=== PATIENT | female | born 1990 | race Caucasian/White ===

== ENCOUNTER 2017-07-25 18:03 | Emergency (ER) | payer OTHER ==
[2017-07-25] MEDS: OXYCODONE/APAP 5MG/325MG(BULK FOR ED) 1 TABLET PO (20:17)
== END 2017-07-25 20:20 | disposition home or self-care (01) ==
LOC: M ED 18:03
DX: Z76.0 Encounter for issue of repeat prescription (principal); G89.29 Other chronic pain; C85.90 Non-Hodgkin lymphoma, unspecified, unspecified site; E03.9 Hypothyroidism, unspecified; F41.9 Anxiety disorder, unspecified; Z79.890 Hormone replacement therapy; Z79.899 Other long term (current) drug therapy; Z88.8 Allergy status to other drugs, medicaments and biological substances; Z91.02 Food additives allergy status; Z98.890 Other specified postprocedural states
CPT/HCPCS: 99283

== ENCOUNTER → 2017-12-30 | Outpatient (CLI) | payer OTHER ==
[~2017-12-30] MED LIST: METHACHOLINE KIT (J7674) INH
== END ==
LOC: M CARPUL 09:19
DX: R06.00 Dyspnea, unspecified (principal)
CPT/HCPCS: J7674

== ENCOUNTER 2019-09-10 13:07 | Inpatient (IN) | payer OTHER ==
[~2019-09-10] VITALS: Ht 154.9 cm; Wt 84.0 kg
[~2019-09-10 13:07] MED LIST changes: +LEVO125T4 PO; -METHACHOLINE KIT (J7674) INH; +NUVAMIS2 VA; +OXYC30TA72 PO; +PHEN1SUP6 PO; +ZOLO50TA PO
[2019-09-10] MEDS ORDERED: OXYC1TAB15 PO (13:20)
[2019-09-10] MEDS ORDERED: MORP-69 PO (13:20)
[2019-09-10] MEDS ORDERED: ONDANSETRON 4MG/2ML VIAL (J2405) IV ONE (14:30)
[2019-09-10 14:34] LABS: INFLUENZA A AMPLIFICATION NEGATIVE (NEGATIVE); INFLUENZA B AMPLIFICATION NEGATIVE (NEGATIVE)
--- NOTE | 2019-09-10 14:40 | REP ---
CHEST, TWO VIEWS: No comparison. Two views of the chest are performed. Right lung is clear with no infiltrate. Density at the right cardiophrenic angle probably represents a fat pad. Left hilum appears retracted superiorly with apparent pleural and parenchymal fibrosis in the left apex. Heart is not enlarged. Visualized osseous structures appear intact. IMPRESSION: No evidence of acute infiltrate. 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 Electronically Signed by Ponce Draper MD 09/10/2019 06:53 P
[2019-09-10 15:16] LABS: HEMATOCRIT 39.1 % (36.0-47.0); HEMOGLOBIN 12.5 g/dl (12.0-15.5); MEAN CORPUSCULAR HEMOGLOBIN 29.7 pg (27.0-33.0); MEAN CORPUSCULAR VOLUME 92.9 fl (80.0-96.0); RED BLOOD COUNT 4.21 10^6/uL (4.00-5.40); WHITE BLOOD COUNT 13.2 10^3/uL (4.0-10.0)
[2019-09-10 15:51] LABS: ANISOCYTOSIS 1+; HYPOCHROMASIA 1+; LYMPHOCYTES 3 % (16-44); MONOCYTES 3 % (0-5); NEUTROPHILS 93 % (28-66); PLATELET ESTIMATE INVALID (NORMAL)
[2019-09-10 15:52] LABS: TEAR DROP CELLS 1+
[2019-09-10 15:53] LABS: SPHEROCYTES 1+
[2019-09-10 15:54] LABS: ERYTHROCYTE SEDIMENTATION RATE 92 mm/hr (0-20)
[2019-09-10 15:56] LABS: BLOOD UREA NITROGEN 6 MG/DL (7-18); CALCIUM LEVEL 8.2 MG/DL (8.5-10.1); CARBON DIOXIDE LEVEL 30 MEQ/L (21-32); CHLORIDE LEVEL 94 MEQ/L (98-107); CK-MB VALUE MASS < 1.0 NG/ML (<3.6); CPK CREATINE PHOSPHOKINASE 14 U/L (26-192); CREATININE FOR GFR 0.65 MG/DL (0.55-1.30); GLOMERULAR FILTRATION RATE > 60.0 (>60); GLUCOSE, FASTING 118 MG/DL (70-100); MB/CK RELATIVE INDEX 7.14 (< OR =4); POTASSIUM SERUM 3.1 MEQ/L (3.5-5.1); SODIUM LEVEL 134 MEQ/L (136-145); TROPONIN I < 0.02 NG/ML (< 0.10)
[2019-09-10] MEDS ORDERED: MORPHINE 4 MG/ML 1ML VIAL/SYRINGE (J2270) IV ONE (16:00)
[2019-09-10] MEDS ORDERED: ACETAMINOPHEN 500 MG TAB PO ONE (16:00)
[2019-09-10] MEDS ORDERED: PROM25TA12 PO (16:53)
[2019-09-10] MEDS ORDERED: cefTRIAXone SOD 1 GM in D5W MINI-BAG PLUS 50 ML IV ONE (17:30)
--- NOTE | 2019-09-10 17:56 | ECGEPIP ---
[facility] - ED Test Date: 2019-09-10 Pat Name: AMARJIT PALMER Department: Room: - Gender: Female Negative Retoucher: faiza : 1990 Requested By: RAKESH AU Order Number: [id number] Reading MD: Diana Manzano Measurements Intervals [place] Rate: 127 P: 56 IN: 154 QRS: 8 QRSD: 82 T: 43 QT: 335 QTc: 488 Interpretive Statements SINUS TACHYCARDIA LOW QRS VOLTAGE IN PRECORDIAL LEADS NONSPECIFIC ST & T-WAVE ABNORMALITY ABNORMAL RHYTHM ECG PRWP NO PRIOR Electronically Signed on 09-10-2019 17:56:13 EST by Diana Manzano
[2019-09-10] MEDS ORDERED: PILL CUTTER 1 EACH XX PRN (18:45)
[2019-09-10 19:12] VITALS: BP 133/89
[2019-09-10] MEDS: KCL 40MEQ in NS 1000ML 1,000 ML IV SCH (19:49)
[2019-09-10] MEDS ORDERED: ACETAMINOPHEN 500 MG TAB PO SCH (21:00)
--- NOTE | 2019-09-10 21:45 | HPEPDOC ---
General Date of Admission 09/10/19 Date of Service: Sep 10, 2019 Chief Complaint The patient is a 29-year-old female admitted with a reason for visit of FEVER. Source: Patient, RN/, Old records History of Present Illness 29 year old female who was diagnosed with strep throat adn scarlet fever about 3 weeks ago and was given a 10 course of antibiotics. After 4 to 5 days of antibiotics her rash had resolved her fever was gone and her pharyngitis was better so she stopped taking the antibiotics. She started back on fevers 6 days ago along with nausea and vomiting and her rash came back about 4 days ago rapidly spreading from the thighs to the legs then abdomen and back . It was red and confluennt with areas of desquamation. She was taking tylenol at home however the fever and rash was not improving so she came to the ED. In the ED she was found to have elvated WBC, elevated lactate, very high CRP and ESR and very high ASO titer . She was also febrile to 102 and tachycardic to 140s. She was admitted for streptococcal pharyngitis, sepsis and scarlitiniform rash. Home Medications Scheduled Levothyroxine Sodium (Levothyroxine Sodium) 125 Mcg Tab, 125 MCG PO DAILY, (Reported) Morphine Sulfate (Morphine Sulfate ER) 15 Mg Tablet.er, 15 MG PO QID, (Reported) 0500, 1100, 1700, 2300 Sertraline Hcl (Zoloft) 50 Mg Tab, 75 MG PO DAILY, (Reported) Scheduled PRN Promethazine HCl (Promethazine HCl) 25 Mg Tablet, 25 MG PO Q6H PRN for NAUSEA, (Reported) Allergies Coded Allergies: duloxetine (Verified Allergy, Unknown, "auto immune response", 09/10/19) gabapentin (Verified Adverse Reaction, Unknown, "crazy in the head", 09/10/19) Past Medical History Medical History NHL lymphoma in 2007 in remission s/p chemo and radiation h/o restrictive lung disease h/o pericardial windows x 3 h/o bilateral pleural effusions in 2007 s/p thoracotomy with lymphatic channel ligation Chronic chest pain after thoracotomy Opiod dependence s/p tonsillectomy and adenoidectomy in 2007 Social History * Smoker: Denies Alcohol: Denies Drugs: denies A-FIB/CHADSVASC A-FIB History Current/History of A-Fib/PAF?: No Review of Systems Constitutional: Reports: Chills, Fever; Denies: Night Sweats Eyes: Denies: Pain, Vision change ENT: Reports: Sore Throat Skin: Reports: Rash Pulmonary: Denies: Dyspnea, Cough Cardiovascular: Reports: Chest Pain Gastrointestinal: Reports: Nausea, Vomiting Genitourinary: Denies: Dysuria, Frequency, Incontinence, Retention Hematologic: Denies: Bruising, Bleeding Excessively Musculoskeletal: Denies: Neck Pain, Back Pain, Joint Pain, Muscle Pain, Spasms Neurological: Denies: Weakness, Numbness, Change in speech, Confusion Psych: Reports: Mood Normal; Denies: Depression, Memory Issues Physical Examination General Exam: Positive: Alert, Cooperative, No Acute Distress Eye Exam: Positive: PERRLA, Conjunctiva & lids normal, EOMI; Negative: Sclera icteric ENT Exam: Positive: Mucous membr. moist/pink, Tongue Midline, Pharyngeal Edema Neck Exam: Positive: Supple; Negative: JVD, thyromegaly Chest Exam: Positive: Clear to auscultation, Normal air movement Heart Exam: Positive: Tachycardic, Regular Rhythm, Normal S1, Normal S2 Telemetry: Positive: No significant arrhythmia Abdomen Exam: Positive: Normal bowel sounds, Soft; Negative: Tenderness, Hepatospenomegaly Extremity Exam: Positive: Normal pulses; Negative: Clubbing, Cyanosis, Edema Skin Exam: Positive: Rash (diffuse confluent erythematous rash with areasof desquamation in the legs, thighs, abodomen and back. ) Neuro Exam: Positive: Normal Speech, Strength at 5/5 X4 ext, Normal Tone, Cranial Nerves 3-12 NL, Reflexes 2+ Psych Exam: Positive: Mental status NL, Mood NL, Memory Intact, Oriented x 3 Vital Signs Vital Signs Date Time Temp Pulse Resp B/P (MAP) Pulse Ox O2 Delivery O2 Flow Rate FiO2 09/10/19 17:04 16 Room Air 09/10/19 15:43 102.4 139 127/79 (95) 97 Laboratory Data Labs 24H Laboratory Tests 2 09/10/19 13:58: Influenza Type A (RT-PCR) NEGATIVE, Influenza Type B (RT-PCR) NEGATIVE 09/10/19 14:58: Immature Granulocyte % (Auto) , Neutrophils (%) (Auto) , Nucleated Red Blood Cells % (auto) 0.0, Neutrophils 93H, Band Neutrophils 1, Lymphocytes (Manual) 3L, Monocytes (Manual) 3, Hypochromasia 1+, Anisocytosis 1+, Macrocytosis 1+, Spherocytes 1+, Tear Drop Cells 1+, Platelet Estimate INVALID, Erythrocyte S edimentation Rate 92H, Anion Gap 10, Glomerular Filtration Rate > 60.0, Lactic Acid Level 2.1*H, Calcium Level 8.2L, Total Creatine Kinase 14L, Creatine Kinase MB < 1.0, Creatine Kinase MB Relative Index 7.14H, Troponin I < 0.02, C-Reactive Protein, Quantitative 29.50H, Anti-Streptolysin O Antibody 287.0H CBC/BMP Laboratory Tests 09/10/19 14:58 Microbiology Microbiology 09/10/19 Blood Culture, Received Pending 09/10/19 Blood Culture, Received Pending Assessment/Plan 29 year old female who was diagnosed with strep throat adn scarlet fever about 3 weeks ago and was given a 10 course of antibiotics. After 4 to 5 days of antibiotics her rash had resolved her fever was gone and her pharyngitis was better so she stopped taking the antibiotics. She started back on fevers 6 days ago along with nausea and vomiting and her rash came back about 4 days ago rapidly spreading from the thighs to the legs then abdomen and back . It was red and confluennt with areas of desquamation. She was taking tylenol at home h owever the fever and rash was not improving so she came to the ED. In the ED she was found to have elvated WBC, elevated lactate, very high CRP and ESR and very high ASO titer . She was also febrile to 102 and tachycardic to 140s. She was admitted for streptococcal pharyngitis, sepsis and scarlitiniform rash. Strepcoccocal pharyngitis she had strep group A throat infection 3 weeks ago did not finish antibiotics. will recheck strep throat and throat culture will give ceftriaxone. tylenol and ibuprofen for fever Rash this looks like scarlet fever symptomatic treatment. Sepsis due to above blood cultures and throat cultures ordered. will give ivf and ceftriaxone Hypokalemia replaced. Tachycardia due to high ASO titre, high crp and high ESR will get an echo and monitor under telemetry. History of NHL now in remission Chronic chest pain from thoracotomy continue morphine Restrictive lung disease chronic CXR with chronic changes Plan / VTE VTE Prophylaxis Ordered?: Yes HANNAH CARLOS MD Sep 10, 2019 17:21
[2019-09-10] MEDS: MORPHINE 15 MG SA TAB PO SCH (22:01)
[2019-09-10] MEDS: IBUPROFEN 800 MG TAB PO PRN (23:29)
[2019-09-11] MEDS: diphenhydrAMINE 25 MG CAP PO SCH ×2 (00:23→22:32)
[2019-09-11] MEDS: LEVOTHYROXINE 125MCG TABLET (0.125MG) PO SCH (05:09)
[2019-09-11] MEDS: KCL 40MEQ in NS 1000ML 1,000 ML IV SCH ×2 (05:12→15:16)
[2019-09-11] MEDS: MORPHINE 15 MG SA TAB PO SCH ×4 (05:12→22:32)
[2019-09-11] MEDS ORDERED: cefTRIAXone SOD 1 GM in D5W MINI-BAG PLUS 50 ML IV SCH (06:00)
[2019-09-11] MEDS ORDERED: cefTRIAXone SOD 1 GM in D5W MINI-BAG PLUS 50 ML IV ONE (07:00)
[2019-09-11 07:50] VITALS: BP 129/75
[2019-09-11] MEDS: SERTRALINE HCL 50 MG TAB PO SCH (09:08)
[2019-09-11] MEDS: ENOXAPARIN 40 MG/0.4 ML SYRINGE (J1650) SC SCH (09:09)
[2019-09-11] MEDS: ACETAMINOPHEN 500 MG TAB PO SCH ×2 (09:12→21:32)
[2019-09-11] MEDS: PERCOCET 5MG/325MG TAB PO PRN ×3 (09:12→21:33)
--- NOTE | 2019-09-11 10:45 | IPNPDOC ---
Subjective Date Seen The patient was seen on 09/11/19. Subjective Chief Complaint/HPI feeling better , no more fever all night . rash getting better . Right knee pain is better, No difficulty in breathing. Objective Physical Examination General Exam: Positive: Alert, Cooperative, No Acute Distress Eye Exam: Positive: PERRLA, Conjunctiva & lids normal, EOMI; Negative: Sclera icteric ENT Exam: Positive: Mucous membr. moist/pink, Tongue Midline, Pharyngeal Edema Neck Exam: Positive: Supple; Negative: JVD, thyromegaly Chest Exam: Positive: Clear to auscultation, Normal air movement Heart Exam: Positive: Tachycardic, Regular Rhythm, Normal S1, Normal S2 Telemetry: Positive: No significant arrhythmia Abdomen Exam: Positive: Normal bowel sounds, Soft; Negative: Tenderness, Hepatospenomegaly Extremity Exam: Positive: Normal pulses; Negative: Clubbing, Cyanosis, Edema Skin Exam: Positive: Rash (diffuse confluent erythematous rash with areasof desquamation in the legs, thighs, abodomen and back. ) Neuro Exam: Positive: Normal Speech, Strength at 5/5 X4 ext, Normal Tone, Cranial Nerves 3-12 NL, Reflexes 2+ Psych Exam: Positive: Mental status NL, Mood NL, Memory Intact, Oriented x 3 Assessment /Plan Assessment 29 year old female who was diagnosed with strep throat and scarlet fever about 3 weeks ago and was given a 10 course of antibiotics. After 4 to 5 days of antibiotics her rash had resolved her fever was gone and her pharyngitis was better so she stopped taking the antibiotics. She started back on fevers 6 days ago along with nausea and vomiting and her rash came back about 4 days ago rapidly spreading from the thighs to the legs then abdomen and back . It was red and confluent with areas of desquamation. She was taking tylenol at home however the fever and rash was not improving so she came to the ED. In the ED she was found to have elevated WBC, elevated lactate, very high CRP and ESR and very high ASO titer . She was also febrile to 102 and tachycardic to 140s. She also started having right knee pain. She was admitted for streptococcal pharyngitis, sepsis and scarlitiniform rash. Possible Acute rheumatic fever Has onoarthritis of right knee, elevated ASO, elevated CRP, and ESR, fever. No [place] prolongation Will get an echo for evaluation for Carditis Tylenol and ibuprofen for fever Streptococcal pharyngitis she had strep group A throat infection 3 weeks ago did not finish antibiotics. will recheck strep throat and throat culture will give ceftriaxone. Rash this looks like scarlet fever rash rather than erythema marginatum symptomatic treatment. Sepsis due to above blood cultures and throat cultures ordered. ceftriaxone Hypokalemia replaced. Tachycardia due to high ASO titre, high crp and high ESR will get an echo and monitor under telemetry. History of NHL now in remission Chronic chest pain from thoracotomy continue morphine Restrictive lung disease chronic CXR with chronic changes Plan/VTE VTE Prophylaxis Ordered?: Yes VS, I&O, 24H, Fishbone Vital Signs/I&O Vital Signs Date Time Temp Pulse Resp B/P (MAP) Pulse Ox O2 Delivery O2 Flow Rate FiO2 09/11/19 09:12 17 09/11/19 07:50 97.0 89 129/75 (93) 97 Room Air I&O- Last 24 Hours up to 6 AM 09/11/19 06:00 Intake Total 2168 ml Output Total 800 ml Balance 1368 ml Laboratory Data 24H LABS Laboratory Tests 2 09/10/19 13:58: Influenza Type A (RT-PCR) NEGATIVE, Influenza Type B (RT-PCR) NEGATIVE 09/10/19 14:58: Immature Granulocyte % (Auto) , Neutrophils (%) (Auto) , Nucleated Red Blood Cells % (auto) 0.0, Neutrophils 93H, Band Neutrophils 1, Lymphocytes (Manual) 3L, Monocytes (Manual) 3, Hypochromasia 1+, Anisocytosis 1+, Macrocytosis 1+, Spherocytes 1+, Tear Drop Cells 1+, Platelet Estimate INVALID, Erythrocyte Sedimentation Rate 92H, Anion Gap 10, Glomerular Filtration Rate > 60.0, Lactic Acid Level 2.1*H, Calcium Level 8.2L, Total Creatine Kinase 14L, Creatine Kinase MB < 1.0, Creatine Kinase MB Relative Index 7.14H, Troponin I < 0.02, C-Reactive Protein, Quantitative 29.50H, Anti-Streptolysin O Antibody 287.0H 09/10/19 19:43: Lactic Acid Followup at 4 Hours 1.3 CBC/BMP Laboratory Tests 09/10/19 14:58 Microbiology Microbiology 09/10/19 Eye/Ear/Nose/Throat Culture, Received Pending 09/10/19 Group A Streptococcus Screen (JAVI) - Final, Complete 09/10/19 Blood Culture, Received Pending 09/10/19 Blood Culture, Received Pending HANNAH CARLOS MD Sep 11, 2019 10:45
[2019-09-11 11:34] VITALS: BP 114/77
[2019-09-11] MEDS ORDERED: BICILLIN L-A 2,400,000 UNIT/4 ML SYRINGE (J0561-24)PENICILLIN G BENZATINE IM ONE ×2 (12:00→12:15)
[2019-09-11] MEDS: ONDANSETRON 4MG/2ML VIAL (J2405) IV PRN (13:26)
[2019-09-11 15:40] VITALS: BP 127/82
--- NOTE | 2019-09-11 20:13 | IPNPDOC ---
Text Note Date of Service The patient was seen on 09/11/19. NOTE TIME OF SERVICE 802PM Per d/w the patient's RN she is still nauseous despite zofran. I offered the patient reglan and explained that there is a risk of developing drug induced parkinsons "moving slow". The patient verbalized understanding and despite the risk would like to try the medication for her nausea. VS,Fishbone, I+O VS, Fishbone, I+O Vital Signs Date Time Temp Pulse Resp B/P (MAP) Pulse Ox O2 Delivery O2 Flow Rate FiO2 09/11/19 17:07 16 09/11/19 15:40 97.0 97 127/82 (97) 96 Room Air I&O- Last 24 Hours up to 6 AM 09/11/19 05:59 Intake Total 2118 ml Output Total 800 ml Balance 1318 ml FELIPE DYER MD Sep 11, 2019 20:12
[2019-09-11] MEDS ORDERED: METOCLOPRAMIDE INJ 10MG/2ML VIAL (J2765) IV ONE (20:15)
[2019-09-11 22:00] VITALS: BP 109/70
[2019-09-11] MEDS: IBUPROFEN 800 MG TAB PO PRN (22:40)
[2019-09-11 23:25] LABS: APPEARANCE, URINE HAZY (CLEAR); BACTERIA, URINE AUTO NEGATIVE (NEGATIVE); BILIRUBIN, URINE AUTO 1+ (NEGATIVE); BLOOD, URINE BLOOD NEGATIVE (NEGATIVE); COLOR, URINE AMBER (YELLOW); GLUCOSE, URINE (UA) AUTO NEGATIVE (NEGATIVE); KETONE, URINE AUTO NEGATIVE (NEGATIVE); LEUKOCYTE ESTERASE, URINE AUTO NEGATIVE (NEGATIVE); MUCUS, URINE SMALL (NEGATIVE); NITRITE, URINE AUTO NEGATIVE (NEGATIVE); PROTEIN, URINE AUTO 1+ mg/dL (NEGATIVE); RBC, URINE AUTO 3 /HPF (0-3); SPECIFIC GRAVITY URINE AUTO 1.027 (1.002-1.035); SQUAMOUS EPITHELIAL CELL UR AU 6 /HPF (0-6); WBC, URINE AUTO 5 /HPF (0-3)
[2019-09-12] MEDS: KCL 40MEQ in NS 1000ML 1,000 ML IV SCH ×3 (00:14→22:20)
[2019-09-12] MEDS: MORPHINE 15 MG SA TAB PO SCH ×4 (05:30→23:00)
[2019-09-12] MEDS: LEVOTHYROXINE 125MCG TABLET (0.125MG) PO SCH (05:30)
[2019-09-12 06:00] VITALS: BP 97/66
[2019-09-12 06:02] LABS: BASO % 0.2 % (0.0-1.0); EOS # 0.1 10^3/uL (0.0-0.5); EOS % 0.8 % (0.0-3.0); HEMATOCRIT 30.2 % (36.0-47.0); LYMPH # 0.9 10^3/uL (1.5-5.0); LYMPH % 9.5 % (24.0-44.0); MEAN CORPUSCULAR HEMOGLOBIN 29.1 pg (27.0-33.0); MEAN CORPUSCULAR HGB CONC 30.5 g/dl (32.0-36.5); MEAN CORPUSCULAR VOLUME 95.6 fl (80.0-96.0); MONO # 0.6 10^3/uL (0.0-0.8); MONO % 6.2 % (0.0-5.0); NEUTROPHILS # 7.3 10^3/uL (1.5-8.5); NEUTROPHILS % 79.2 % (36.0-66.0); PLATELET COUNT, AUTOMATED 255 10^3/uL (150-450); RED BLOOD COUNT 3.16 10^6/uL (4.00-5.40); WHITE BLOOD COUNT 9.2 10^3/uL (4.0-10.0)
[2019-09-12 06:07] LABS: HEMOGLOBIN 9.2 g/dl (12.0-15.5)
[2019-09-12 06:24] LABS: ERYTHROCYTE SEDIMENTATION RATE 107 mm/hr (0-20)
[2019-09-12] MEDS: cefTRIAXone SOD 2 GM in D5W MINI-BAG PLUS 50 ML IV SCH (06:32)
[2019-09-12 07:30] LABS: BLOOD UREA NITROGEN 4 MG/DL (7-18); CALCIUM LEVEL 7.4 MG/DL (8.5-10.1); CARBON DIOXIDE LEVEL 29 MEQ/L (21-32); CHLORIDE LEVEL 107 MEQ/L (98-107); GLOMERULAR FILTRATION RATE > 60.0 (>60); GLUCOSE, FASTING 79 MG/DL (70-100); MAGNESIUM LEVEL 2.1 MG/DL (1.8-2.4); POTASSIUM SERUM 3.8 MEQ/L (3.5-5.1); SODIUM LEVEL 140 MEQ/L (136-145)
[2019-09-12] MEDS: SERTRALINE HCL 50 MG TAB PO SCH (08:33)
[2019-09-12] MEDS: ENOXAPARIN 40 MG/0.4 ML SYRINGE (J1650) SC SCH (08:34)
[2019-09-12] MEDS: ACETAMINOPHEN 500 MG TAB PO SCH ×2 (08:34→22:19)
[2019-09-12] MEDS: PERCOCET 5MG/325MG TAB PO PRN ×2 (09:21→18:35)
[2019-09-12 14:00] VITALS: BP 104/68
[2019-09-12] MEDS ORDERED: PROHANCE 279.3MG/ML 5ML VIAL (A9576) As Ordered ONE (18:03)
[2019-09-12] MEDS ORDERED: PROHANCE 279.3MG/ML 15ML VIAL (A9576) As Ordered ONE (18:04)
[2019-09-12] MEDS ORDERED: LORazepam 2 MG/ML VIAL (J2060) IV STA ×2 (18:47→20:46)
--- NOTE | 2019-09-12 19:17 | ECHO ---
DATE OF PROCEDURE: 09/12/2019 REFERRING PHYSICIAN: Dr. Amina Reese INDICATION: Shortness of breath. HEIGHT: 155 cm WEIGHT: 83 kg 2D MEASUREMENTS: Ventricular septum: 0.88 cm Posterior wall: 0.65 cm Left ventricle diastole: 5.2 cm Aortic root: 2.1 cm LVOT: 2.0 cm Left atrium: 3.5 cm Inferior vena cava: 1.7 cm DOPPLER MEASUREMENTS: Aortic valve velocity: 106 cm/s LVOT velocity: 76.4 cm/s No aortic regurgitation. Very mild mitral regurgitation. Mitral E velocity: 118 cm/s Mitral A velocity: 77.7 cm/s Mitral deceleration time: 127 ms Mild tricuspid regurgitation. Estimated right ventricle systolic pressure: 32-37 mmHg assuming a right atrial pressure of 5-10 mmHg. Mild pulmonic regurgitation. MITRAL ANNULAR TISSUE DOPPLER: E prime lateral: 13.5 cm/s E prime septal: 8.6 cm/s DESCRIPTION: Rhythm was sinus. Image quality was fair. This was a 2D, M-mode, color flow Doppler and pulse wave Doppler examination and included mitral annular tissue Doppler. CONCLUSIONS: 1. Normal left ventricle internal dimensions and wall thickness. Normal regional left ventricular (LV) wall motion and wall thickening. Normal LV systolic function. Left ventricular ejection fraction (LVEF) 65% by visual estimate. Normal LV diastolic function. 2. Suggestive of mild elevation of estimated right ventricle systolic pressure. Mild tricuspid regurgitation. 3. Tiny pericardial effusion, quite possibly within physiologic limits. 4. Otherwise normal appearing echocardiogram Doppler findings.
--- NOTE | 2019-09-12 20:07 | IPNPDOC ---
Subjective Date Seen The patient was seen on 09/12/19. Subjective Chief Complaint/HPI continues to have knee pain but says it i better than before and she can bend the knee a little, only low grade fever last night , no fever this am. rash less angry on the legs. rash on carissa back and abdomen much better almost gone. Complains of nausea after food which is chronic but now much worse. Objective Physical Examination General Exam: Positive: Alert, Cooperative, No Acute Distress Eye Exam: Positive: PERRLA, Conjunctiva & lids normal, EOMI; Negative: Sclera icteric ENT Exam: Positive: Mucous membr. moist/pink, Tongue Midline, Pharyngeal Edema Neck Exam: Positive: Supple; Negative: JVD, thyromegaly Chest Exam: Positive: Clear to auscultation, Normal air movement Heart Exam: Positive: Tachycardic, Regular Rhythm, Normal S1, Normal S2 Telemetry: Positive: No significant arrhythmia Abdomen Exam: Positive: Normal bowel sounds, Soft; Negative: Tenderness, Hepatospenomegaly Extremity Exam: Positive: Normal pulses, Tenderness (right knee), Swelling (right knee); Negative: Clubbing, Cyanosis, Edema Skin Exam: Positive: Rash (diffuse confluent erythematous rash with areasof desquamation in the legs, thighs, abodomen and back. ) Neuro Exam: Positive: Normal Speech, Strength at 5/5 X4 ext, Normal Tone, Cranial Nerves 3-12 NL, Reflexes 2+ Psych Exam: Positive: Mental status NL, Mood NL, Memory Intact, Oriented x 3 Assessment /Plan Assessment 29 year old female who was diagnosed with strep throat and scarlet fever about 3 weeks ago and was given a 10 course of antibiotics. After 4 to 5 days of antibiotics her rash had resolved her fever was gone and her pharyngitis was better so she stopped taking the antibiotics. She started back on fevers 6 days ago along with nausea and vomiting and her rash came back about 4 days ago rapidly spreading from the thighs to the legs then abdomen and back . It was red and confluent with areas of desquamation. She was taking tylenol at home however the fever and rash was not improving so she came to the ED. In the ED she was found to have elevated WBC, elevated lactate, very high CRP and ESR and very high ASO titer . She was also febrile to 102 and tachycardic to 140s. She also started having right knee pain. She was admitted for streptococcal pharyngitis, sepsis and scarlitiniform rash. Possible Acute rheumatic fever Has monoarthritis of right knee, elevated ASO, elevated CRP, and ESR, fever. No [place] prolongation Will get an echo for evaluation for Carditis Tylenol and ibuprofen for fever given benzathine penicillin on ceftriaxone will consult ID. ordered for MRI of Knee Streptococcal pharyngitis she had strep group A throat infection 3 weeks ago did not finish antibiotics. recheck strep throat and throat culture are negative Rash this looks like scarlet fever rash rather than erythema marginatum symptomatic treatment. Sepsis due to above blood cultures negative till date ceftriaxone Hypokalemia replaced. Tachycardia due to high ASO titre, high crp and high ESR echo normal History of NHL now in remission Chronic chest pain from thoracotomy continue morphine and percocet Restrictive lung disease chronic CXR with chronic changes Plan/VTE VTE Prophylaxis Ordered?: Yes VS, I&O, 24H, Fishbone Vital Signs/I&O Vital Signs Date Time Temp Pulse Resp B/P (MAP) Pulse Ox O2 Delivery O2 Flow Rate FiO2 09/12/19 19:05 18 09/12/19 14:00 97.4 99 104/68 (80) 96 Room Air I&O- Last 24 Hours up to 6 AM 09/12/19 06:00 Intake Total 1890 ml Output Total 1250 ml Balance 640 ml Laboratory Data 24H LABS Laboratory Tests 2 09/11/19 23:02: Urine Color TERESO, Urine Appearance HAZY, Urine pH 5.0, Urine Specific [place] 1.027, Urine Protein 1+H, Urine Glucose (Auto)(UA) NEGATIVE, Urine Ketones (Auto) NEGATIVE, Urine Blood NEGATIVE, Urine Nitrite NEGATIVE, Urine Bilirubin 1+H, Urine Urobilinogen 4.0H, Urine Leukocyte Esterase (Auto) NEGATIVE, Urine WBC (Auto) 5H, Urine RBC (Auto) 3, Urine Hyaline Casts (Auto) 0, Urine Bacteria (Auto) NEGATIVE, Urine Squamous Epithelial Cells 6, Urine Mucus (Auto) SMALL, Urine Sperm (Auto) 09/12/19 05:11: Immature Granulocyte % (Auto) 4.1H, Neutrophils (%) (Auto) 79.2H, Lymphocytes (%) (Auto) 9.5L, Monocytes (%) (Auto) 6.2H, Eosinophils (%) (Auto) 0.8, Basophils (%) (Auto) 0.2, Neutrophils # (Auto) 7.3, Lymphocytes # (Auto) 0.9L, Monocytes # (Auto) 0.6, Eosinophils # (Auto) 0.1, Basophils # (Auto) 0.0, Nucleated Red Blood Cells % (auto) 0.0, Erythrocyte Sedimentation Rate 107H, Anion Gap 4L, Glomerular Filtration Rate > 60.0, Calcium Level 7.4L, Magnesium Level 2.1, C-Reactive Protein, Quantitative 17.20H, Anti-Streptolysin O Antibody 248.0H CBC/BMP Laboratory Tests 09/12/19 05:11 Microbiology Microbiology 09/10/19 Eye/Ear/Nose/Throat Culture - Final, Complete 09/10/19 Group A Streptococcus Screen (JAVI) - Final, Complete 09/10/19 Blood Culture - Preliminary, Resulted No Growth after 48 hours. All Specime... 09/10/19 Blood Culture - Preliminary, Resulted No Growth after 48 hours. All Specime... HANNAH CARLOS MD Sep 12, 2019 20:07
[2019-09-12] MEDS: diphenhydrAMINE 25 MG CAP PO SCH (22:19)
--- NOTE | 2019-09-12 22:30 | REPVR ---
PROCEDURE INFORMATION: Exam: MR Right Lower Extremity Joint Without and With Contrast, Knee Exam date and time: 09/12/2019 9:45 PM Age: 29 years old Clinical indication: Swelling or effusion of joint; Knee; Additional info: Swollen, painful knee + HX scarlet fever and group a strep TECHNIQUE: Imaging protocol: MR of the Right lower extremity joint without and with contrast. Exam focused on the knee. Contrast route: Intravenous Contrast material: PROHANCE; Contrast volume: 16 ml; Contrast route: IV COMPARISON: No relevant prior studies available. FINDINGS: Significantly limited study secondary to motion on multiple sequences. Mild subcutaneous soft tissue edema is present circumferentially. No identifiable focal fluid collection suggestive of abscess. Muscular compartments of the imaged distal thigh and proximal leg demonstrate no edema or abnormal enhancement and no peripherally enhancing fluid collection suggestive of an abscess. Small volume of knee joint fluid is present with normal degree of synovial enhancement. Normal osseous alignment. No periosteal elevation. No cortical disruption or fracture/stress fracture. No concerning osseous lesion. No marrow replacement or enhancement to suggest osteomyelitis. Ligaments are difficult to evaluate adequately because of the motion artifact but grossly, the cruciate, and collateral ligaments are intact and the quadriceps mechanism and menisci show no obvious deformity. Chondral surfaces of the knee are difficult to evaluate. IMPRESSION: Limited study secondary to motion, demonstrating mild subcutaneous soft tissue edema suggesting cellulitis superficially. No deep soft tissue infection or evidence of osteomyelitis. Small knee joint effusion without convincing evidence of synovitis to definitively suggest septic arthropathy. As always, if there is high clinical suspicion for septic arthropathy, direct joint aspiration and fluid analysis is required. Electronically signed by: Dharmesh Nuno On 09/12/2019 22:30:24 PM
[2019-09-13] MEDS: KCL 40MEQ in NS 1000ML 1,000 ML IV SCH ×2 (05:30→16:14)
[2019-09-13] MEDS: LEVOTHYROXINE 125MCG TABLET (0.125MG) PO SCH (05:30)
[2019-09-13] MEDS: MORPHINE 15 MG SA TAB PO SCH ×4 (05:30→23:40)
[2019-09-13 06:00] VITALS: BP 113/86
[2019-09-13 06:44] LABS: HEMATOCRIT 32.9 % (36.0-47.0); MEAN CORPUSCULAR HEMOGLOBIN 29.2 pg (27.0-33.0); MEAN CORPUSCULAR HGB CONC 30.4 g/dl (32.0-36.5); MEAN CORPUSCULAR VOLUME 95.9 fl (80.0-96.0); PLATELET COUNT, AUTOMATED 321 10^3/uL (150-450); RED BLOOD COUNT 3.43 10^6/uL (4.00-5.40)
[2019-09-13] MEDS: cefTRIAXone SOD 2 GM in D5W MINI-BAG PLUS 50 ML IV SCH (06:44)
[2019-09-13 06:58] LABS: EOSINOPHILS 1 % (0-3); LYMPHOCYTES 9 % (16-44); MONOCYTES 4 % (0-5); NEUTROPHILS 86 % (28-66)
[2019-09-13 06:59] LABS: PLATELET ESTIMATE NORMAL (NORMAL)
[2019-09-13 07:12] LABS: BLOOD UREA NITROGEN 4 MG/DL (7-18); CALCIUM LEVEL 8.2 MG/DL (8.5-10.1); CARBON DIOXIDE LEVEL 26 MEQ/L (21-32); CHLORIDE LEVEL 110 MEQ/L (98-107); CREATININE FOR GFR 0.48 MG/DL (0.55-1.30); GLOMERULAR FILTRATION RATE > 60.0 (>60); GLUCOSE, FASTING 95 MG/DL (70-100); POTASSIUM SERUM 4.4 MEQ/L (3.5-5.1); SODIUM LEVEL 139 MEQ/L (136-145)
[2019-09-13] MEDS: ACETAMINOPHEN 500 MG TAB PO SCH ×2 (08:54→20:04)
[2019-09-13] MEDS: SERTRALINE HCL 50 MG TAB PO SCH (08:55)
[2019-09-13] MEDS: ENOXAPARIN 40 MG/0.4 ML SYRINGE (J1650) SC SCH (08:57)
--- NOTE | 2019-09-13 11:21 | IPNPDOC ---
Subjective Date Seen The patient was seen on 09/13/19. Subjective Chief Complaint/HPI He right knee continues to be very sore and still swollen but she says its better as now she can walk and and bear weight more. No diarrhea, no vomiting. No abdominal pain. rash is better. No fever . Objective Physical Examination General Exam: Positive: Alert, Cooperative, No Acute Distress Eye Exam: Positive: PERRLA, Conjunctiva & lids normal, EOMI; Negative: Sclera icteric ENT Exam: Positive: Mucous membr. moist/pink, Tongue Midline, Pharyngeal Edema Neck Exam: Positive: Supple; Negative: JVD, thyromegaly Chest Exam: Positive: Clear to auscultation, Normal air movement Heart Exam: Positive: Tachycardic, Regular Rhythm, Normal S1, Normal S2 Telemetry: Positive: No significant arrhythmia Abdomen Exam: Positive: Normal bowel sounds, Soft; Negative: Tenderness, Hepatospenomegaly Extremity Exam: Positive: Tenderness (right knee), Swelling (of right knee); Negative: Clubbing, Cyanosis, Edema Skin Exam: Positive: Rash (diffuse confluent erythematous rash with areasof desquamation in the legs, thighs, abodomen and back. ) Neuro Exam: Positive: Normal Speech, Strength at 5/5 X4 ext, Normal Tone, Cranial Nerves 3-12 NL, Reflexes 2+ Psych Exam: Positive: Mental status NL, Mood NL, Memory Intact, Oriented x 3 Assessment /Plan Assessment 29 year old female who was diagnosed with strep throat and scarlet fever about 3 weeks ago and was given a 10 course of antibiotics. After 4 to 5 days of antibiotics her rash had resolved her fever was gone and her pharyngitis was better so she stopped taking the antibiotics. She started back on fevers 6 days ago along with nausea and vomiting and her rash came back about 4 days ago rapidly spreading from the thighs to the legs then abdomen and back . It was red and confluent with areas of desquamation. She was taking tylenol at home however the fever and rash was not improving so she came to the ED. In the ED she was found to have elevated WBC, elevated lactate, very high CRP and ESR and very high ASO titer . She was also febrile to 102 and tachycardic to 140s. She also started having right knee pain. She was admitted for streptococcal pharyngitis, sepsis and scarlitiniform rash. Possible Acute rheumatic fever Has monoarthritis of right knee, elevated ASO, elevated CRP, and ESR, fever. No CA prolongation Echo normal Tylenol and ibuprofen for fever given benzathine penicillin on ceftriaxone consulted ID, consulted derm. MRi of knee noted. Streptococcal pharyngitis she had strep group A throat infection 3 weeks ago finished 8 days of amoxici llin 1 gm bid. recheck strep throat and throat culture are negative Rash this looks like scarlet fever rash rather than erythema marginatum symptomatic treatment. Sepsis vs SIRS due to above blood cultures negative till date ceftriaxone Hypokalemia replaced. Tachycardia resolved was due to fever and pain. due to high ASO titre, high crp and high ESR echo normal History of NHL now in remission Chronic chest pain from thoracotomy continue morphine and percocet Restrictive lung disease chronic CXR with chronic changes Plan/VTE VTE Prophylaxis Ordered?: Yes VS, I&O, 24H, Fishbone Vital Signs/I&O Vital Signs Date Time Temp Pulse Resp B/P (MAP) Pulse Ox O2 Delivery O2 Flow Rate FiO2 09/13/19 06:00 97.8 96 14 113/86 (95) 96 Room Air I&O- Last 24 Hours up to 6 AM 09/13/19 05:59 Intake Total 2750 ml Output Total 1200 ml Balance 1550 ml Laboratory Data 24H LABS Laboratory Tests 2 09/13/19 06:29: Immature Granulocyte % (Auto) , Neutrophils (%) (Auto) , Nucleated Red Blood Cells % (auto) 0.0, Neutrophils 86H, Lymphocytes (Manual) 9L, Monocytes (Manual) 4, Eosinophils (Manual) 1, Red Blood Cell Morphology NORMAL, Platelet Estimate NORMAL, Anion Gap 3L, Glomerular Filtration Rate > 60.0, Calcium Level 8.2L CBC/BMP Laboratory Tests 09/13/19 06:29 Microbiology Microbiology 09/10/19 Eye/Ear/Nose/Throat Culture - Final, Complete 09/10/19 Group A Streptococcus Screen (JAVI) - Final, Complete 09/10/19 Blood Culture - Preliminary, Resulted No Growth after 48 hours. All Specime... 09/10/19 Blood Culture - Preliminary, Resulted No Growth after 48 hours. All Specime... HANNAH CARLOS MD Sep 13, 2019 11:21
--- NOTE | 2019-09-13 11:37 | CR ---
DATE OF CONSULTATION: 09/12/2019 HISTORY OF PRESENT ILLNESS: Lorena Sierra is a 29-year-old female with a history of non-Hodgkin lymphoma treated about 11 years ago with chemotherapy and radiation who presents today with 3 weeks of fevers and rash. According to the patient, she reports that at first her 4-year-old daughter was complaining of a sore throat and she took her to the clinic where she tested positive for group A Streptococcal pharyngitis. In addition, the patient herself was tested and also found to have positive group A strep on 08/07/2019. Both the patient and her daughter were given 10 days of amoxicillin which the patient reports she took 8 days of. Prior to this, she noted an itchy rash in her groin. After she took the 8 days of the amoxicillin and her daughter took the 10 days of her amoxicillin, her daughter felt better but the patient started to notice worsening rash on her legs, her back and her hips. She states that the rash was very itchy, her legs were very swollen and she noticed she was getting fevers. She came to the hospital for further workup as the rash was spreading all over her body. In the emergency room, she was found to have elevated white blood cell count, elevated lactase, very high CRP and ESR and a very high ASO titer. She was also febrile to 102 and tachycardic in the 140s. Infectious disease was consulted for concern for worsening rash and suspected case of scarlet fever. PAST MEDICAL/SURGICAL HISTORY: 1. Non-Hodgkin lymphoma in 2008 status post chemoradiation and currently in remission. 2. 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 3. History of pericardial window times three. History of bilateral pleural effusions in 2008 status post thoracotomy with lymphatic channel ligation. 4. Chronic chest pain after thoracotomy. 5. Opioid dependence. 6. Status post tonsillectomy and adenoidectomy. SOCIAL HISTORY: Patient is a never smoker. Does not drink alcohol. Does not do any drugs. Lives at home with her who is in the and her daughter who is 4 years old. ALLERGIES: She has allergies to DULOXETINE and GABAPENTIN. HOME MEDICATIONS: - levothyroxine 125 mcg by mouth daily - morphine sulfate ER 15 mg tablets four times a day - sertraline 50 mg tablets 75 mg by mouth daily - promethazine 25 mg every 6 hours as needed for nausea. REVIEW OF SYSTEMS: She reports fevers and chills at home. HEENT: Eyes: She denies any vision changes or pain. She denies sore throat. Skin: She reports worsening rash on her body. Pulmonary: She denies any shortness of breath or cough or dyspnea. Cardiovascular: She denies any chest pain or palpitations. Gastrointestinal: She denies any nausea, vomiting, or diarrhea or constipation. Genitourinary: She denies any dysuria, frequency, incontinence or retention. Hematologic: She denies any new bruising or bleeding excessively. Musculoskeletal: She reports chronic low back and chest pain. Neurologic: She denies any weakness, numbness or loss of sensation. No changes in speech or confusion. Psych: She reports her moods are normal but she has depression and memory issues. PHYSICAL EXAMINATION: VITALS: At this time, temperature 97.4, with a maximum temperature (T-max) of 100.3 in the past 24 hours. Pulse 99, respiratory rate 18, blood pressure 104/68, pulse oximetry 96% on room air. She is net positive 1550 mL. She is making good urine by urinating .77 mL per hour. GENERALLY: She is sitting up in bed. She is calm, cooperative in no acute distress. Very pleasant. HEENT: Normocephalic, atraumatic. Pupils are equal, round and reactive to light and her extraocular movements are intact. Mucous membranes are moist. NECK: Supple with cervical adenopathy on the right but not on the left. No thyromegaly. CHEST: She has even chest rise. LUNGS: She has some audible wheezing without stethoscope or auscultation. Otherwise, she is clear to auscultation bilaterally with no adventitious breath sounds appreciated. CARDIOVASCULAR: She is somewhat tachycardic with normal S1 and normal S2. No murmurs, rubs or gallops. ABDOMEN: Very protuberant, soft, nontender to palpation. Positive bowel sounds. No masses or organomegaly. EXTREMITIES: She has very swollen and erythematous lower extremities bilaterally. Her right knee is very erythematous and painful to touch. Her range of motion is severely limited due to pain. Unable to examine the right knee. Left knee is within normal limits. SKIN: She has an erythematous rash encompassing both legs, her hips and her back. The rash on her hips is dry and flakey. PSYCH: Normal mood and normal affect. Awake, alert and oriented times three. NEURO: Cranial nerves II through XII are intact with no obvious focal deficits. LABS: CBC demonstrates a white blood cell count of 9.2, down from 13.2 yesterday. Her hemoglobin is 9.2, her hematocrit is 40.2 and her platelet count is 255. On chemistry, her sodium is 140, potassium 3.8, carbon dioxide 29, BUN 4, and creatinine 0.5. Lactic acid was originally 2.1 now it is down to 1.3. Calcium 7.4. CRP went from 29.5 to 17.2. Her sed rate was 92 and is now up to 107. Her urine is negative for infection. Her ASO antibody went from 287 and is now 248. MICROBIOLOGY: She has group A Streptococcal screen, which was negative and she has had two blood cultures, which are both negative after 48 hours. IMAGING: She had a chest x-ray which showed no evidence of acute infiltrate. 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 ASSESSMENT: This is a 29-year-old female with history of non-Hodgkin lymphoma who presents after 3 weeks of rash, fever and positive group A Streptococcal screen with known contacts with also group A strep now found to have fevers and joint pain with arthritis elevated CRP and rash concerning for rheumatic fever. PLAN: Agree with the current antibiotic regimen of ceftriaxone. I have ordered an MRI of her right knee to determine if there is any fluid to aspirate per concerns for her rheumatic fever. In addition, will await the results of her echocardiogram to determine if there are any concerns for rheumatic fever involving the heart muscle causing carditis. We will also consult dermatology and have their opinion on the patient's rash as the rash may have caused by rheumatic fever or it could have been a drug rash from the amoxicillin that she took for her group A strep pharyngitis. In any case, we are happy to answer any questions regarding this patient. We will look to find the results of these tests. LIZA
[2019-09-13 14:00] VITALS: BP 114/72
[2019-09-13] MEDS: PERCOCET 5MG/325MG TAB PO PRN ×2 (14:11→19:17)
--- NOTE | 2019-09-13 20:19 | IPN ---
DATE: 09/13/2019 Ms. Sierra was seen and examined at the bedside today. She reports that her rash is improving. Her knee feels much better and she is able to move it. She was up and able to walk around her room earlier today when her daughter and visited. Subjectively, she feels much better than she did yesterday. She has not had any fevers in the last 24 hours and she feels as though she is getting better. OBJECTIVE: Her vitals at this time are a temperature of 98.1, pulse 88, respiratory rate of 18, blood pressure 114/72, pulse oximetry of 96% on room air. GENERAL: She is sitting up in bed. She is calm, cooperative and in no acute distress. HEENT: Head is normocephalic, atraumatic. Pupils are equal, round and reactive to light. Her extraocular movements are intact. Her mucous membranes are moist. NECK: Supple with slight cervical adenopathy on the right but none on the left. No thyromegaly. CHEST: She has even chest rise. LUNGS: She has audible wheezing without the stethoscope and possibly some stridor on examination. Otherwise, she is clear to auscultation bilaterally with no adventitious breath sounds appreciated. CARDIOVASCULAR: Regular rate and rhythm with no murmurs, rubs or gallops. Normal S1 and normal S2. ABDOMEN: Soft and nontender to palpation. She has bowel sounds. No masses or organomegaly. EXTREMITIES: She has somewhat swollen and erythematous lower extremities bilaterally. Her right knee is somewhat erythematous but better than yesterday, it is somewhat warm to touch. Her range of motion is limited due to the pain. Her left knee is within normal limits. SKIN: She has an erythematous rash encompassing both of her legs, her hips and back. The rash on her hips is very dry and flaky. PSYCHIATRIC: Normal mood and normal affect. Awake, alert, and oriented times three. NEUROLOGIC: Cranial nerves II through XII are intact with no obvious focal deficits. LABORATORIES: Today, her white blood cell count was 7.0, hemoglobin 10, hematocrit 32.9, platelet count is 321. Her sodium is 139, potassium 4.4, carbon dioxide is 26, BUN 4, creatinine 0.48. Her C-reactive protein has gone down from 29.5 to 17.2. She has had no growth on any of the cultures that were drawn. Her knee MRI that was done yesterday shows that it was a limited study secondary to motion, demonstrating some mild subcutaneous soft tissue edema, suggesting cellulitis superficially. No deep soft tissue infection or evidence of osteomyelitis. Small knee joint effusion without convincing evidence of synovitis to definitively suggest septic arthropathy. As always, if there is a high clinical suspicion for septic arthropathy, direct joint aspiration and fluid analysis is required. ASSESSMENT: This is a 29-year-old female with a history of non Hodgkin's lymphoma, who presents with 3 weeks of rash, fever, migratory arthralgias and positive group A screen with known contacts also with group A strep, now found to have fevers and joint pain concerning for rheumatic fever. PLAN: Upon further questioning with the patient, she does report that her left knee was first painful and now it is her right knee. Therefore, we surmise that this may be due to migratory arthralgias. Therefore, she meets the criteria of rheumatic fever in terms of her arthralgias, fever, positive group A strep screen and the rash. Therefore, we have stopped her ceftriaxone and she is a good candidate for once monthly Penicillin G Benzathine injections. It appears as though she has already been fully treated for her group A strep infection with the amoxicillin that she took and the ceftriaxone. Her hospitalist team also did already give her a dose of Pen G Benzathine. We discussed with the patient that anyone with a history of rheumatic fever would need to be treated for several years on penicillin and she is willing to do so. From our standpoint, the patient is stable and as can go home at this point. LIZA
[2019-09-13] MEDS ORDERED: PENICILLIN V POTASSIUM 500 MG TAB PO SCH ×2 (21:00)
[2019-09-13] MEDS: diphenhydrAMINE 25 MG CAP PO SCH (21:41)
[2019-09-13 22:00] VITALS: BP 110/70
[2019-09-14] MEDS: KCL 40MEQ in NS 1000ML 1,000 ML IV SCH ×2 (02:21→12:30)
[2019-09-14] MEDS: MORPHINE 15 MG SA TAB PO SCH ×2 (05:06→12:41)
[2019-09-14] MEDS: LEVOTHYROXINE 125MCG TABLET (0.125MG) PO SCH (05:50)
[2019-09-14 05:57] LABS: HEMATOCRIT 29.9 % (36.0-47.0); MEAN CORPUSCULAR HEMOGLOBIN 29.2 pg (27.0-33.0); MEAN CORPUSCULAR HGB CONC 30.1 g/dl (32.0-36.5); MEAN CORPUSCULAR VOLUME 97.1 fl (80.0-96.0); PLATELET COUNT, AUTOMATED 333 10^3/uL (150-450); RED BLOOD COUNT 3.08 10^6/uL (4.00-5.40); WHITE BLOOD COUNT 6.6 10^3/uL (4.0-10.0)
[2019-09-14 06:00] VITALS: BP 119/81
[2019-09-14 06:22] LABS: BLOOD UREA NITROGEN 2 MG/DL (7-18); CALCIUM LEVEL 8.2 MG/DL (8.5-10.1); CARBON DIOXIDE LEVEL 27 MEQ/L (21-32); CHLORIDE LEVEL 110 MEQ/L (98-107); CREATININE FOR GFR 0.45 MG/DL (0.55-1.30); GLOMERULAR FILTRATION RATE > 60.0 (>60); GLUCOSE, FASTING 75 MG/DL (70-100); POTASSIUM SERUM 4.8 MEQ/L (3.5-5.1); SODIUM LEVEL 142 MEQ/L (136-145)
[2019-09-14 06:37] LABS: BASOPHILS 1 % (0-1); EOSINOPHILS 1 % (0-3); LYMPHOCYTES 17 % (16-44); MONOCYTES 4 % (0-5); NEUTROPHILS 77 % (28-66); PLATELET ESTIMATE NORMAL (NORMAL)
[2019-09-14] MEDS: PERCOCET 5MG/325MG TAB PO PRN (07:46)
[2019-09-14] MEDS: ACETAMINOPHEN 500 MG TAB PO SCH (08:44)
[2019-09-14] MEDS: SERTRALINE HCL 50 MG TAB PO SCH (08:44)
[2019-09-14] MEDS: ENOXAPARIN 40 MG/0.4 ML SYRINGE (J1650) SC SCH (08:45)
[2019-09-14] MEDS: ONDANSETRON 4MG/2ML VIAL (J2405) IV PRN (09:24)
[2019-09-14] MEDS ORDERED: [UNRECOGNIZED DRUG - CODE] IM (11:43)
[2019-09-14] MEDS ORDERED: FUROSEMIDE 20 MG TAB PO ONE (13:15)
[2019-09-14] MEDS ORDERED: LASI40TA9 PO (13:15)
--- NOTE | 2019-09-15 07:43 | CR.PDOC ---
General Date of Consultation: Sep 13, 2019 Referring Provider: Josh Osborn MD Attending Physician: HANNAH CARLOS MD Consultation REASON FOR CONSULTATION/CHIEF COMPLAINT: Rash HISTORY OF PRESENT ILLNESS: Lorena Sierra is a 29-year-old female with a history of non-Hodgkin lymphoma treated about 11 years ago with chemotherapy and radiation who presented with 3 weeks of fevers and rash. According to the patient, she reports that at first her 4-year-old daughter was complaining of a sore throat and she took her to the clinic where she tested positive for group A streptococcal pharyngitis. In addition, the patient herself was tested and also found to have positive group A strep on 08/07/2019. Both the patient and her daughter were given 10 days of amoxicillin which the patient reports she took 8 days of. Prior to this, she noted an itchy rash in her groin. After she took the 8 days of the amoxicillin and her daughter took the 10 days of her amoxicillin, her daughter felt better but the patient started to notice worsening rash on her legs, her back and her hips. She states that the rash was very itchy, her legs were very swollen and she noticed she was getting fevers. She came to the hospital for further workup as the rash was spreading all over her body. In the emergency room, she was found to have elevated white blood cell count, elevated lactase, very high CRP and ESR and a very high ASO titer. She was also febrile to 102 and tachycardic in the 140s. Infectious disease was consulted for concern for worsening rash and suspected case of scarlet fever. Dermatology was consulted with concern for acute rheumatic fever. PAST MEDICAL/SURGICAL HISTORY: 1. Non-Hodgkin lymphoma in 2008 status post chemoradiation and currently in remission. 2. 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 3. History of pericardial window times three. History of bilateral pleural effusions in 2008 status post thoracotomy with lymphatic channel ligation. 4. Chronic chest pain after thoracotomy. 5. Opioid dependence. 6. Status post tonsillectomy and adenoidectomy. SOCIAL HISTORY: Patient is a never smoker. Does not drink alcohol. Does not do any drugs. Lives at home with her who is in the and her daughter who is 4 years old. ALLERGIES: She has allergies to DULOXETINE and GABAPENTIN. HOME MEDICATIONS: - levothyroxine 125 mcg by mouth daily - morphine sulfate ER 15 mg tablets four times a day - sertraline 50 mg tablets 75 mg by mouth daily - promethazine 25 mg every 6 hours as needed for nausea. REVIEW OF SYSTEMS: She reports fevers and chills at home. HEENT: Eyes: She denies any vision changes or pain. She denies sore throat. Skin: She reports worsening rash on her body. Pulmonary: She denies any shortness of breath or cough or dyspnea. Cardiovascular: She denies any chest pain or palpitations. Gastrointestinal: She denies any nausea, vomiting, or diarrhea or constipation. Genitourinary: She denies any dysuria, frequency, incontinence or retention. Hematologic: She denies any new bruising or bleeding excessively. Musculoskeletal: She reports chronic low back and chest pain. Neurologic: She denies any weakness, numbness or loss of sensation. No changes in speech or confusion. Psych: She reports her moods are normal but she has depression and memory issues. PHYSICAL EXAMINATION GENERALLY: She is sitting up in bed. She is calm, cooperative in no acute distress. Very pleasant. HEENT: Normocephalic, atraumatic. Mucous membranes are moist. NECK: Supple with cervical adenopathy on the right but not on the left. No thyromegaly. CHEST: She has even chest rise. RESPIRATORY: She has a regular rate and rhythm to her breathing. ABDOMEN: Soft, nontender to palpation. No masses or organomegaly. EXTREMITIES: Swollen, erythematous lower extremities bilaterally. Her right knee is very erythematous and painful to touch. Her range of motion is severely limited due to pain. Unable to examine the right knee. Left knee is within normal limits. SKIN: Erythematous scaly patches back, legs, arms that appears to be fading, on the hips is a desquamating rash with faint erythema present with appearance of a n annular or serpentine pattern PSYCH: Normal mood and normal affect. Awake, alert and oriented times three. NEURO: Cranial nerves II through XII are grossly intact with no obvious focal deficits. LABS: WBC demonstrates reduction to normal from 13.2 prior. Lactic acid was originally 2.1 now it is down to 1.3. CRP elevated to approximately 30 but decreased. Prior sed rates to 92 to 107. Her ASO antibody trending down from 287. MICROBIOLOGY: She had group A Streptococcal screen, which was negative and she had two blood cultures, which were both negative after 48 hours. IMAGING: She had a chest x-ray which showed no evidence of acute infiltrate. 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 Echocardiogram normal in the hospital. ASSESSMENT: This is a 29-year-old female with history of non-Hodgkin lymphoma who presents after 3 weeks of rash, fever and positive group A Streptococcal screen with CRP to 30 and ESR above 100 with white count on admission with known contacts with group A strep with joint pain with arthritis with rash. ASSESSMENT/PLAN: 1. Streptococcus-associated rash: Does not appear classic for erythema marginatum - more similar appearance to scarlet fever. Nonetheless, the rash may have been partially resolved at the time I saw the patient in the hospital. Given her history of NHL with treatment with chemotherapy and radiation and the patient meeting ULLOA criteria (major: arthritis and minor: fever, sed rate above 100 or above, CRP 30), I would treat the patient as acute rheumatic fever and should follow the recommendations for ARF and monitoring as well to include antibiotics that are appropriate and echocardiography. Patient aware. Thank you for this consultation, the patient should follow up with infectious disease as an outpatient. Vital Signs/I&O Vital Signs Date Time Temp Pulse Resp B/P (MAP) Pulse Ox O2 Delivery O2 Flow Rate FiO2 09/14/19 07:46 18 09/14/19 06:00 96.2 95 119/81 (94) 97 Room Air I&O- Last 24 Hours up to 6 AM 09/14/19 06:00 Intake Total 4120 ml Output Total 1950 ml Balance 2170 ml Laboratory Data Labs 24H Laboratory Tests 2 09/14/19 05:25: Immature Granulocyte % (Auto) , Neutrophils (%) (Auto) , Nucleated Red Blood Cells % (auto) 0.0, Neutrophils 77H, Lymphocytes (Manual) 17, Monocytes (Manual) 4, Eosinophils (Manual) 1, Basophils (Manual) 1, Red Blood Cell Morphology NORMAL, Platelet Estimate NORMAL, Anion Gap 5L, Glomerular Filtration Rate > 60.0, Calcium Level 8.2L CBC/BMP Laboratory Tests 09/14/19 05:25 Microbiology Microbiology 09/10/19 Eye/Ear/Nose/Throat Culture - Final, Complete 09/10/19 Group A Streptococcus Screen (JAVI) - Final, Complete 09/10/19 Blood Culture - Preliminary, Resulted No Growth after 72 hours. All specime... 09/10/19 Blood Culture - Preliminary, Resulted No Growth after 72 hours. All specime... Allergies Coded Allergies: duloxetine (Verified Allergy, Unknown, "auto immune response", 09/10/19) gabapentin (Verified Adverse Reaction, Unknown, "crazy in the head", 09/10/19) Home Medications Scheduled Furosemide (Lasix) 40 Mg Tablet, 1 TAB PO DAILY, #7 Levothyroxine Sodium (Levothyroxine Sodium) 125 Mcg Tab, 125 MCG PO DAILY, (Reported) Morphine Sulfate (Morphine Sulfate ER) 15 Mg Tablet.er, 15 MG PO QID, (Reported) 0500, 1100, 1700, 2300 Penicillin G Benzathine (Bicillin l-A) 1,200,000 Unit/2 Ml Syringe, 1,200,000 UNITS IM ASDIRECTED, #1 Once Every 21 to 28 days. Sertraline Hcl (Zoloft) 50 Mg Tab, 75 MG PO DAILY, (Reported) Scheduled PRN Promethazine HCl (Promethazine HCl) 25 Mg Tablet, 25 MG PO Q6H PRN for NAUSEA, (Reported) LUL GARDNER MD Sep 14, 2019 08:11
--- NOTE | 2019-09-20 19:11 | DS.PDOC ---
Discharge Summary General Date of Admission Sep 10, 2019 at 18:10 Discharge Summary PROCEDURES PERFORMED DURING STAY: [None]. DISCHARGE DIAGNOSES: Acute Rheumatic Fever SIRS Recent Streptococcal pharyngitis SECONDARY DIAGNOSIS: NHL lymphoma in 2007 in remission s/p chemo and radiation h/o restrictive lung disease h/o pericardial windows x 3 h/o bilateral pleural effusions in 2007 s/p thoracotomy with lymphatic channel ligation Chronic chest pain after thoracotomy Opiod dependence s/p tonsillectomy and adenoidectomy in 2007 COMPLICATIONS/CHIEF COMPLAINT: Scarlatiniform Rash;Strep Pharyngitis. HISTORY OF PRESENT ILLNESS: See history and physical HOSPITAL COURSE: 29 year old female who was diagnosed with strep throat and scarlet fever about 3 weeks ago and was given a 10 course of antibiotics. After 4 to 5 days of antibiotics her rash had resolved her fever was gone and her pharyngitis was better so she stopped taking the antibiotics. She started back on fevers 6 days ago along with nausea and vomiting and her rash came back about 4 days ago rapidly spreading from the thighs to the legs then abdomen and back . It was red and confluent with areas of desquamation. She was taking tylenol at home however the fever and rash was not improving so she came to the ED. In the ED she was found to have elevated WBC, elevated lactate, very high CRP and ESR and very high ASO titer . She was also febrile to 102 and tachycardic to 140s. She also started having right knee pain. She was admitted for streptococcal pharyngitis, sepsis and scarlitiniform rash. Acute rheumatic fever Has monoarthritis of right knee, elevated ASO, elevated CRP, and ESR, fever. No MA prolongation Echo normal given benzathine penicillin continue every 3 to 4 weeks for the next 5 years. consulted ID, consulted derm. MRi of knee noted. Streptococcal pharyngitis treated she had strep group A throat infection 3 weeks ago finished 8 days of amoxicillin 1 gm bid. recheck strep throat and throat culture are negative Rash this looks like scarlet fever rash rather than erythema marginatum symptomatic treatment. Sepsis vs SIRS due to above blood cultures negative till date Hypokalemia replaced. Tachycardia resolved was due to fever and pain. due to high ASO titre, high crp and high ESR echo normal History of NHL now in remission Chronic chest pain from thoracotomy continue morphine and percocet Restrictive lung disease chronic CXR with chronic changes DISCHARGE MEDICATIONS: Please see below. ALLERGIES: Please see below. PHYSICAL EXAMINATION ON DISCHARGE: VITAL SIGNS: Please see below. General Exam: Positive: Alert, Cooperative, No Acute Distress Eye Exam: Positive: PERRLA, Conjunctiva & lids normal, EOMI; Negative: Sclera icteric ENT Exam: Positive: Mucous membr. moist/pink, Tongue Midline, Pharyngeal Edema Neck Exam: Positive: Supple; Negative: JVD, thyromegaly Chest Exam: Positive: Clear to auscultation, Normal air movement Heart Exam: Positive: Tachycardic, Regular Rhythm, Normal S1, Normal S2 Telemetry: Positive: No significant arrhythmia Abdomen Exam: Positive: Normal bowel sounds, Soft; Negative: Tenderness, Hepatospenomegaly Extremity Exam: Positive: Tenderness (right knee), Swelling (of right knee); Negative: Clubbing, Cyanosis, Edema Skin Exam: Positive: Rash (diffuse confluent erythematous rash with areasof desquamation in the legs, thighs, abodomen and back. ) Neuro Exam: Positive: Normal Speech, Strength at 5/5 X4 ext, Normal Tone, Cranial Nerves 3-12 NL, Reflexes 2+ Psych Exam: Positive: Mental status NL, Mood NL, Memory Intact, Oriented x 3 LABORATORY DATA: Please see below. ACTIVITY: [As tolerated]. DIET: Regular DISPOSITION: 01 Home, Self-Care. DISCHARGE INSTRUCTIONS: PMD in 3 weeks for penicillin injection DISCHARGE CONDITION: [Stable]. TIME SPENT ON DISCHARGE: 35 minutes. Vital Signs/I&Os Vital Signs Date Time Temp Pulse Resp B/P (MAP) Pulse Ox O2 Delivery O2 Flow Rate FiO2 09/14/19 12:41 18 Room Air 09/14/19 06:00 96.2 95 119/81 (94) 97 Microbiology Microbiology 09/10/19 Eye/Ear/Nose/Throat Culture - Final, Complete 09/10/19 Group A Streptococcus Screen (JAVI) - Final, Complete 09/10/19 Blood Culture - Final, Complete NO GROWTH AFTER 5 DAYS 09/10/19 Blood Culture - Final, Complete NO GROWTH AFTER 5 DAYS Discharge Medications Scheduled Furosemide (Lasix) 40 Mg Tablet, 1 TAB PO DAILY Levothyroxine Sodium (Levothyroxine Sodium) 125 Mcg Tab, 125 MCG PO DAILY, (Reported) Morphine Sulfate (Morphine Sulfate ER) 15 Mg Tablet.er, 15 MG PO QID, (Reported) 0500, 1100, 1700, 2300 Penicillin G Benzathine (Bicillin l-A) 1,200,000 Unit/2 Ml Syringe, 1,200,000 UNITS IM ASDIRECTED Once Every 21 to 28 days. Sertraline Hcl (Zoloft) 50 Mg Tab, 75 MG PO DAILY, (Reported) Scheduled PRN Promethazine HCl (Promethazine HCl) 25 Mg Tablet, 25 MG PO Q6H PRN for NAUSEA, (Reported) Allergies Coded Allergies: duloxetine (Verified Allergy, Unknown, "auto immune response", 09/10/19) gabapentin (Verified Adverse Reaction, Unknown, "crazy in the head", 09/10/19) HANNAH CARLOS MD Sep 20, 2019 19:11
== END 2019-09-14 13:56 | disposition home or self-care (01) | DRG 546 ==
LOC: M ED 13:07 → M ED INP 18:10 → CANRESERV 18:27 → ENRESERVDT 18:27 → ENRESERVTM 18:27 → ENRESERVDT 18:36 → M PCU 19:00 → M MSPAV 09-11 20:16
PROVIDERS: ADMIT Internal Medicine Nephrology; ATTEND Internal Medicine Nephrology
DX: I00 Rheumatic fever without heart involvement (principal); R65.10 Systemic inflammatory response syndrome (SIRS) of non-infectious origin without acute organ dysfunction; F11.20 Opioid dependence, uncomplicated; A38.9 Scarlet fever, uncomplicated; E87.6 Hypokalemia; R11.0 Nausea; J98.4 Other disorders of lung; R00.0 Tachycardia, unspecified; R07.89 Other chest pain; M25.561 Pain in right knee; Z92.21 Personal history of antineoplastic chemotherapy; Z92.3 Personal history of irradiation; Z88.8 Allergy status to other drugs, medicaments and biological substances; Z85.79 Personal history of other malignant neoplasms of lymphoid, hematopoietic and related tissues; Z79.899 Other long term (current) drug therapy